=== PATIENT | female | born 1985 | race Caucasian/White ===

== ENCOUNTER 2018-02-07 11:35 | Inpatient (IN) | payer OTHER ==
[~2018-02-07] VITALS: Ht 162.6 cm; Wt 74.8 kg
[2018-02-11] MEDS ORDERED: FAMOTIDINE(*) 20MG/50ML PREMIX 50 ML IVPB PRN (23:51)
[2018-02-11] MEDS ORDERED: OXYTOCIN 30 UNIT/D5LR 500 ML 500 ML IV PRN (23:51)
[2018-02-11] MEDS ORDERED: LIDOCAINE/SOD BICARB 8.4% SYR SC PRN (23:55)
[2018-02-11] MEDS ORDERED: cefOXitin/DEX(*) 2GM/50ML PREM 50 ML IVPB PRN (23:55)
[2018-02-11] MEDS ORDERED: fentaNYL CITR 100 MCG/2 ML AMP IVP PRN (23:55)
[2018-02-11] MEDS ORDERED: METOCLOPRAMIDE 10 MG/2 ML SDV IVP PRN (23:55)
[2018-02-11] MEDS ORDERED: PENICILLIN G 5 MILLUN/100 ML 100 ML IVPB ONE (23:55)
[2018-02-11] MEDS ORDERED: LIDOCAINE 1% LOCAL 300 MG/30ML INJ PRN (23:55)
[2018-02-11] MEDS ORDERED: DLR(*) 1000 ML BAG 1,000 ML IV PRN (23:55)
[2018-02-12] VITALS (7 sets, daily range): BP systolic 106–125; BP diastolic 56–79; Ht 162.6 cm; Wt 74.8 kg
[2018-02-12] MEDS: LR(*) 1000 ML BAG 1,000 ML IV SCH ×4 (00:22→05:41)
[2018-02-12] MEDS ORDERED: BUPIVACAINE 0.5% INJ 30ML VIAL EPI PRN (00:30)
[2018-02-12] MEDS ORDERED: FENTANYL/ROPIVACAINE 100 ML BAG EPI PRN (00:30)
[2018-02-12] MEDS ORDERED: fentaNYL CITR 100 MCG/2 ML AMP IT PRN (00:30)
[2018-02-12] MEDS ORDERED: FAMOTIDINE(*) 20MG/50ML PREMIX 50 ML IVPB PRN (00:30)
[2018-02-12] MEDS ORDERED: ACETAMINOPHEN 500 MG TAB PO PRN (00:30)
[2018-02-12] MEDS ORDERED: LIDO/EPI 2% MPF 1:200,000 20ML EPI PRN (00:30)
[2018-02-12] MEDS ORDERED: BUPIVACAINE 0.25% MPF INJ EPI PRN (00:30)
[2018-02-12] MEDS ORDERED: EPIDURAL KEYS XX PRN (00:30)
[2018-02-12] MEDS ORDERED: ONDANSETRON 4 MG/2 ML VIAL IVP PRN (00:30)
[2018-02-12] MEDS ORDERED: LIDOCAINE/PF 2% 200MG/10ML AMP 200 MG/10 ML AMPUL EPI PRN (00:30)
[2018-02-12] MEDS ORDERED: ePHEDrine 25 MG/5 ML DISP.SYR IVP PRN (00:30)
[2018-02-12 00:41] LABS: PLATELET COUNT, AUTOMATED 176 K/uL (150-450)
--- NOTE | 2018-02-12 02:22 | Anesthesia OB Pre-Anes Eval ---
History of Present Illness Anesthesia Start Date: Feb 12, 2018 Anesthesia Start Time: 00:45 OB Anesthesia Diagnosis: spontaneous labor Complications: None known EDC: Feb 07, 2018 : 1 Para: 0 Pain Ratin Heart Tones: WNL Result Diagram: 02/12/18 0025 02/12/18 0025 Height (Inches): 64 Weight (Pounds): 168 Past Medical History Medical History: asthma Surgical History: no surgical history Attended Childbirth Classes?: Yes, Other (at [facility]) Hx Anesthesia Reactions: No Hx Family Anesthesia Reaction: No Allergies: Coded Allergies: No Known Drug Allergies (Unverified , 02/12/18) Anesthesia OB ROS Neurological: No migraines/headaches, No seizures, No neuropathy ENT: Denies Tooth caps, Denies Loose teeth, Denies Chipped teeth, Denies Dentures, Denies Bridges, Denies Retainers, Denies Veneers, Denies Implants, Denies Tongue ring, Other Pulmonary: asthma (uses inhaler) Airway Class: ll Cardiovascular ROS: No edema, No arrhythmia GI ROS: clear liquids Last Solids Date: Feb 11, 2018 Last Solids Time: 19:00 ROS: No Herpes, No STD(s), No Liver Disease, No Renal Disease Endocrine ROS: No diabetes, No gestational diabetes, No thyroid disorder Musculoskeletal ROS: No low back pain, No low back injury, No scoliosis ASA Classification: 2 Assessment and Plan Anesthesia Plan: CSE Assessment Past Medical, Surgical, Family and Obstetric Histories reviewed. Please see ACOG chart. Epidural anesthesia risks, complications and benefits explained to patient's satisfaction for labor and vaginal delivery and/or section. General anesthesia risks and benefits explained to patient's satisfaction. Questions invited, none asked. Pt. having a difficult time coping with contractions. Pt. not wanting to answer questions, even in between contractions. MARIA DE JESUS LENNON CRNA Feb 12, 2018 02:22
--- NOTE | 2018-02-12 02:41 | Procedure Note ---
Anesthetic Placement Note Anesthesia Plan: CSE Permit for Anesthesia Signed: Yes Anesthesia Technique: Patient Sitting Anesthesia Prep: Chlorhexidine Interspace: L 3-4 Local Anesthetic: 1% Lidocaine, 25 Gauge Needle Amount Local - cc's: 2 Anesthesia Needle: 17g Shivuhshane/Bob Loss of Resistance: Air Depth of ODALIS (cm): 6 Epidural Needle Placement: No CSF, No Blood, No Parasthesia Intrathecal Needle: 27 Gauge Pencan Cerebral Spinal Fluid: Yes, Clear Catheter Insertion (cm): 8 Catheter Type: Soler - Spring Wound Epidural Dressing: Tegaderm, Tape, Adhesive Callaway Anesthesia Tray: Lot Number ([id number]), Expiration Date (2018-09-27), Reference Number ([id number]) Anesthesia Medications: Intrathecal Dose: mcg Fentanyl (15), mg Marcaine MPF (1.75), Time Epidural Test Dose: 1.5 Lido/Epi (1:200,000), Dose - mL (2), Time (0125), Negative Epidural Loading Dose: 0.2% Ropivicaine, With Fentanyl 2mcg/ml, Dose - ml (4), Time (0125) Epidural Infusion: 0.2% Ropivicaine, With Fentanyl 2mcg/ml, Start Time: (0132) Epidural Pump Setting: Bolus Dose - mL (5), Lockout - Minutes (20), Maintenance Rate - mL/hr (4), Maximum per Hour - mL (19) Complications: None Comment: Vital signs stable. Patient comfortable and condition stable. minimal itching noted. Pt. did not notice contractions other than "pressure". MARIA DE JESUS LENNON CRNA Feb 12, 2018 02:41
[2018-02-12] MEDS: PENICILLIN G 2.5 MILLUN/100 ML 100 ML IVPB SCH ×2 (03:31→05:00)
[2018-02-12] MEDS ORDERED: PREN-127 PO (03:35)
[2018-02-12] MEDS ORDERED: ALB18R INH (03:35)
--- NOTE | 2018-02-12 05:47 | Anesthesia Progress Note ---
Progress/Maintenance Anesthesia Note Date: Feb 12, 2018 Anesthesia Note Time: 05:30 Pain Intensity: 4 Pump: On Pump Rate (ML/HR): 4 Sensory Level: T-12 Motor Level: Bending Knees-Bilateral Dilatation: 10 Position: Right, Tilt Drug Bolus: 0.5% Marcaine (4 ml), Other (Fentenyl 85 mcgs) Assessment and Plan Assessment Pt. continues to feel low pelvic pain after bolus per pump. Manual bolus given with total relief within 10 minutes. MARIA DE JESUS LENNON CRNA Feb 12, 2018 05:47
--- NOTE | 2018-02-12 06:15 | History & Physical ---
History of Present Illness Age of Patient: 32 : 1 Para or TPAL: 0 EDC per LMP: Feb 07, 2018 Estimated Gestational Age: 40.5 Chief Complaint labor History of Present Illness at 40 weeks presents in labor. Called earlier today with laboring questions but more spaced out and instructions for waiting to see how it developed given. Contractions worsened through more time and presented in labor at 4-5 cm. Epidural placed shortly after arrival at 0145 and progression continued. Variable decelerations noted since 0200. Completely dilated at 0400 and variables noted to gradually worsen and position dependent. Some decelerations severe and gradual return to baseline. Exam reveals cervix completely dilated, station +1 and position LOP. Past Medical, Surgical, Family and Obstetric Histories reviewed. Please see ACOG chart. History Allergies: Coded Allergies: No Known Drug Allergies (Unverified , 02/12/18) Med Rec Home Meds Reported Medications Vits W-Ca,Fe,Fa(<1MG) ( VITAMINS) 1 Each Tablet, 1 EACH PO DAILY, TAB 02/12/18 Albuterol Sulfate (VENTOLIN HFA) 18 Gm Inh, 1-2 PUFF INH 3-4XD, INH 02/12/18 Review of Systems Other All other systems reported Negative. Exam General Exam Vital Signs Vital Signs Date Time Temp Pulse Resp B/P (MAP) Pulse Ox O2 Delivery O2 Flow Rate FiO2 02/12/18 03:30 99.0 100 26 125/76 (92) 94 Room Air General Apperance: Alert/Awake/No Acute Distress Neuro: No Gross deficits Cardiovascular: Regular Rate and Rhythm Respiratory: No Respiratory Distress Abdomen: Soft, Non-Tender, Non-Distended Integumentary: Skin Intact without Lesions or Rash Psychological: Alert & Oriented X3, Appropriate Mood & Affect Cervical Dialation: 4.5 Fetus Heart Tone Variabilty: Moderate FHT Accelerations: 15X15 FHT Decelerations: Variable FHT Category: I Medical Decision Making Data Points Result Diagram: 02/12/18 0025 02/12/18 0025 VTE Prophylasis: Adult Deep Vein Thrombosis/Pulmonary: No Pharmacological Contraindicati: Pt at Low Risk for VTE Mechanical Contraindications: Pt at Low Risk for VTE Assessment and Plan Problems: (1) Variable heart rate decelerations, antepartum Assessment & Plan: Reviewed the situation with pt and her . Discussed increased risk of emergent delivery with development of severe variables but so far they are intermittent and position dependent. Discussed as an option if emergent and/or operative delivery fails. For now, will see if laboring down possible as long as heart tones are reassuring. Reviewed possibility of having her push strait away with forceps assistance vs having her push for a while on her own. It will depend on the heart tones and tracing interpretation. TIERA OKEEFE MD Feb 12, 2018 06:14
--- NOTE | 2018-02-12 06:47 | Labor Progress Note ---
Labor Subjective Progress Notes Subjective Pitocin initiated to supplement contractions. Pt in right lateral position and tracing reassuring in this position. Repeat exam reveals baby descends to +2 with contraction and still in LOP position. Labor Objective Vital Signs Vital Signs Date Time Temp Pulse Resp B/P (MAP) Pulse Ox O2 Delivery O2 Flow Rate FiO2 02/12/18 03:30 99.0 100 26 125/76 (92) 94 Room Air Fetus Heart Tone Variabilty: Moderate FHT Accelerations: 15X15 FHT Decelerations: Variable (less severe) FHT Category: I Other Result Diagram: 02/12/18 0025 02/12/18 0025 Assessment and Plan Problems: (1) Variable heart rate decelerations, antepartum Assessment & Plan: Discussed with pt. Will have her actively push and reserve use of forceps for if she needs them. TIERA OKEEFE MD Feb 12, 2018 06:46
[2018-02-12] MEDS ORDERED: METHYLERGONOVINE MAL 0.2MG/ML ONE (06:55)
--- NOTE | 2018-02-12 07:45 | Anesthesia Progress Note ---
Progress/Maintenance Anesthesia Note Date: Feb 12, 2018 Anesthesia Note Time: 07:15 Pain Intensity: 0 Pump: Off Sensory Level: T-12 Dilatation: 10 Position: Semi-Fowlers Drug Bolus: 0.5% Marcaine (4 ml) Assessment and Plan Assessment Excellent pain relief from previous bolus. Pt. is able to push well, but due to position, plans changed to use of forceps. Additional 4 ml of 0.5% Marcaine plain given. Excellent tolerance of delivery and repair work. Empty syringe attached to epidural catheter and RN agrees to remove with first ambulation. Patient instructed the first ambulation is to be with help of nursing staff. Instructed to preform deep knee bends at bedside before walking. Anesthesia Stop Day: Feb 12, 2018 Anesthesia Stop Time: 07:15 MARIA DE JESUS LENNON CRNA Feb 12, 2018 07:45
[2018-02-12] MEDS ORDERED: GLYCERIN/WITCH HAZEL LEAF 1 PK TP PRN (07:50)
[2018-02-12] MEDS ORDERED: BENZOCAINE 20% 60 ML BTL TP PRN (07:50)
[2018-02-12] MEDS ORDERED: HYDROCORTISONE 2.5% CR 30GM TB PR PRN (07:50)
[2018-02-12] MEDS ORDERED: LANOLIN OINT 7 GM TUBE TP PRN (07:50)
[2018-02-12] MEDS ORDERED: ACETAMINOPHEN 325 MG TAB PO PRN (07:50)
[2018-02-12] MEDS ORDERED: INFLUENZA VIRUS VAC 0.5 ML SYR IM ONLY ONE (07:50)
[2018-02-12] MEDS ORDERED: MAGNESIUM HYDROXIDE* 30ML UDCP PO PRN (07:50)
[2018-02-12] MEDS ORDERED: MEASLES,MUMP,RUBELLA VAC 0.5ML SC ONE (07:50)
--- NOTE | 2018-02-12 08:03 | OB Delivery Note ---
Delivery Note Vaginal Delivery Type: Forceps, Low Delivery Date: Feb 12, 2018 Delivery Time: 07:12 Estimated Gestational Age(wks): 40 Delivery Anesthesia: Epidural Infant Sex: Male Apgars: 1 Minute (5), 5 Minute (8) Repair Needed: Laceration, Perineal, 3rd Degree (partial) Estimated Blood Loss: 300 Delivery Complications: Other (severe variable decelerations; nuchal x 2, LOP position) Notes: Severe variable decelerations noted to worsen with pushing and slow return noted. Forceps delivery consented for. Bladder was drained and Garber catheter removed. Baby +2/3 station and LOP position. Perineum prepped and forceps easily placed. Maternal push along with assistance brought baby to position with the next contraction. A short pause for mom to reset and pushing resumed. Baby dropped into a prolonged deceleration during this time into the 60s and 70s. With the next push the head delivered and tore through the perineum as a partial 3rd degree. Nuchal cord x 2 noted and baby delivered through this. Cord was immediately clamped, cut and passed to the resuscitation team. APGARS 5, 8 and promptly improved with efforts. Third degree laceration repaired with 2-0 Vicryl around the anal sphincter and 2-0 chromic for the remainder of the repair. No complications. Placenta delivered spontaneous and intact. Tinner Automatic in Attendence: No Copies to: TIERA OKEEFE MD, TRAVIS MD Feb 12, 2018 08:02
[2018-02-12] MEDS: DOCUSATE CALCIUM 240 MG CAP PO SCH ×2 (08:27→22:03)
[2018-02-12] MEDS: IBUPROFEN 800 MG TAB PO SCH ×2 (08:27→17:27)
[2018-02-12] MEDS: HYDROmorphone HCL 2 MG TAB PO PRN (19:56)
[2018-02-13] MEDS: IBUPROFEN 800 MG TAB PO SCH ×3 (00:28→17:49)
[2018-02-13 04:47] VITALS: BP 112/55
[2018-02-13] MEDS: HYDROmorphone HCL 2 MG TAB PO PRN ×3 (04:48→17:49)
[2018-02-13 07:51] VITALS: BP 107/53
[2018-02-13] MEDS ORDERED: FERROUS SULFATE 325 MG TAB PO ONE (08:20)
[2018-02-13] MEDS ORDERED: HYDR2TAB4 PO (08:23)
[2018-02-13] MEDS ORDERED: IBUP800T37 PO (08:23)
--- NOTE | 2018-02-13 08:29 | OB/GYN Progress Note ---
OB Subjective Progress Notes Subjective Doing well. Feeling tired and sore. Labs showing anemia this AM but ambulating well and without symptoms. GI: NEG Nausea : Voiding Well OB Objective Physical Exam Vital Signs Date Time Temp Pulse Resp B/P (MAP) Pulse Ox O2 Delivery O2 Flow Rate FiO2 02/13/18 07:51 98.1 83 18 107/53 (71) 82 02/13/18 04:47 Room Air 02/12/18 15:00 96 General Appearance: Alert/Awake/No Acute Distress Neurological: No Gross deficits Cardiovascular: Normal Rhythm & Peripheral Pulses, Regular Rate and Rhythm Respiratory: No Respiratory Distress, Clear to Auscultation Abdomen: Soft, Non-Tender, Non-Distended, Fundus Firm, Non-Tender Integumentary: Skin Intact without Lesions or Rash Psychological: Alert & Oriented X3, Appropriate Mood & Affect Result Diagram: 02/13/18 0622 02/12/18 0025 Assessment and Plan Problems: (1) Variable heart rate decelerations, antepartum (2) care and examination immediately after delivery Assessment & Plan: Precautions discussed. Home later today if baby does well. (3) Anemia due to acute blood loss Assessment & Plan: iron supplementation TIERA OKEEFE MD Feb 13, 2018 08:20
--- NOTE | 2018-02-13 08:30 | OB/GYN Discharge Summary ---
Discharge Summary Reason for Hosp/Final Diag: (1) Variable heart rate decelerations, antepartum (2) care and examination immediately after delivery Hospital Course & Plan: Precautions discussed. Home later today if baby does well. (3) Anemia due to acute blood loss Hospital Course & Plan: iron supplementation Lates Vital Signs Vital Signs Date Time Temp Pulse Resp B/P (MAP) Pulse Ox O2 Delivery O2 Flow Rate FiO2 02/13/18 07:51 98.1 83 18 107/53 (71) 82 02/13/18 04:47 Room Air 02/12/18 15:00 96 Weight (Pounds): 165 Result Diagram: 02/13/18 0622 02/12/18 0025 Condition: Improved Discharge: Home, Self Alf Meds Active Scripts Hydromorphone Hcl (HYDROMORPHONE HCL) 2 Mg Tablet, 2-4 MG PO Q4H Y for PAIN, # 20 TAB 0 Refills Prov:LOGAN LOPEZ MD 02/13/18 Reported Medications Vits W-Ca,Fe,Fa(<1MG) ( VITAMINS) 1 Each Tablet, 1 EACH PO DAILY, TAB 02/12/18 Albuterol Sulfate (VENTOLIN HFA) 18 Gm Inh, 1-2 PUFF INH 3-4XD, INH 02/12/18 Follow up Referrals: ENERGY TRADER - In 6 Weeks @ [facility] with Logan Lopez Md Follow up with: Dr. Lopez [phone] Discharge Diet: As Tolerates Discharge Activity: As Tolerates, No Heavy Lifting x 6 wks, No Heavy Lifting > 10lb, Pelvic Rest LOGAN LOPEZ MD Feb 13, 2018 08:30
[2018-02-13] MEDS ORDERED: FERR-53 PO (08:31)
[2018-02-13] MEDS ORDERED: DIPHTH/TETANUS/ACEL. PERTUSSIS IM ONLY ONE (09:00)
[2018-02-13] MEDS: DOCUSATE CALCIUM 240 MG CAP PO SCH ×2 (09:54→17:49)
== END 2018-02-13 20:05 | disposition home or self-care (01) | DRG 775 ==
LOC: OB 02-11 23:49
PROVIDERS: ADMIT Obstetrics & Gynecology; ATTEND Obstetrics & Gynecology
PROC: 10D07Z3 Extraction of Products of Conception, Low Forceps, Via Natural or Artificial Opening (ICD-10-PCS; principal; 2018-02-12)
PROC: 0DQR0ZZ Repair Anal Sphincter, Open Approach (ICD-10-PCS; 2018-02-12)
DX: O69.81X0 Labor and delivery complicated by cord around neck, without compression, not applicable or unspecified (principal); D62 Acute posthemorrhagic anemia; O70.20 Third degree perineal laceration during delivery, unspecified; O76 Abnormality in fetal heart rate and rhythm complicating labor and delivery; O90.81 Anemia of the puerperium; O99.52 Diseases of the respiratory system complicating childbirth; J45.909 Unspecified asthma, uncomplicated; Z3A.40 40 weeks gestation of pregnancy; Z37.0 Single live birth
CPT/HCPCS: 36415; 82040; 82247; 82310; 82374; 82435; 82565; 82947; 84075; 84132; 84155; 84295; 84450; 84460; 84520; 85025; 85027; 86850; 86900; 86901; J2540; J2590; J3010; J3490; J7120; S0020